=== PATIENT | female | born 1975 | race Caucasian/White ===

== ENCOUNTER 2019-06-03 07:37 | Observation (INO) | payer OTHER ==
[2019-06-02 10:25] LABS: BASOPHILS # (AUTO) 0.1 (0.0-0.1); BASOPHILS % 0.7 % (0.0-1.0); EOSINOPHILS # (AUTO) 0.2 (0.0-0.4); EOSINOPHILS % 3.1 % (0.0-6.0); HEMATOCRIT 40.2 % (34.2-44.1); HEMOGLOBIN 13.8 g/dL (12.0-16.0); LYMPHOCYTES # (AUTO) 2.2 (1.0-3.2); MEAN CORPUSCULAR HEMOGLOBIN 32.6 pg (28-32); MEAN CORPUSCULAR HGB CONC 34.3 g/dL (31-35); MONOCYTES # (AUTO) 0.5 (0.2-0.8); MONOCYTES % 6.3 % (4.4-11.3); NEUTROPHILS # (AUTO) 4.4 (2.1-6.9); NEUTROPHILS % 59.4 % (38.7-80.0); PLATELET COUNT 273 x10e3/uL (140-360); RED BLOOD COUNT 4.23 x10e6/uL (3.6-5.1); RED CELL DISTRIBUTION WIDTH 11.5 % (11.7-14.4)
[2019-06-02 10:36] LABS: INR 0.87; PROTHROMBIN TIME 12.3 seconds (11.9-14.5)
[2019-06-02 10:37] LABS: PARTIAL THROMBOPLASTIN TIME 30.3 seconds (23.8-35.5)
[2019-06-02 10:42] LABS: ANION GAP 9.4 mmol/L (8-16); BLOOD UREA NITROGEN 9 mg/dL (7-26); BUN/CREATININE RATIO 13 (6-25); CALCIUM 9.2 mg/dL (8.4-10.2); CARBON DIOXIDE 27 mmol/L (22-29); CHLORIDE 104 mmol/L (98-107); CREATININE, SERUM 0.71 mg/dL (0.57-1.11); EST GLOMERULAR FILTRATION RATE > 60 ML/MIN (60-); GLUCOSE 86 mg/dL (74-118); POTASSIUM 4.4 mmol/L (3.5-5.1); SODIUM 136 mmol/L (136-145)
--- NOTE | 2019-06-02 10:54 | Diagnostic Imaging Report ---
EXAMINATION: CHEST 2 VIEWS INDICATION: Pre-operative COMPARISON: None FINDINGS: LINES/TUBES:None LUNGS:The lungs are well-inflated. No focal consolidation or pulmonary edema. PLEURA:No pleural effusion or pneumothorax. MEDIASTINUM:The cardiomediastinal silhouette appears normal in size and shape. BONES/SOFT TISSUES:No acute osseous injury. ABDOMEN:No free air under the diaphragm. Status post cholecystectomy. IMPRESSION: No focal pneumonia or pulmonary edema. Signed by: Jose Deng MD on 06/02/2019 10:51 AM
[~2019-06-03] VITALS: Ht 182.9 cm; Wt 89.8 kg
[~2019-06-03 07:37] MED LIST: ACETAMINOPHEN 1000 MG/100 ML 100 ML IV ONE; IBUPROFEN 800MG/ 250ML 250 ML IV ONE; LIDOCAINE HCL (LTA) 4 ML SOLN ONE
--- OUTSIDE RECORDS SUMMARY | 2019-06-03 07:39 | XMS REPORT ---
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 Allergies, Adverse Reactions, Alerts Allergy Name Allergy Type Status Severity Reaction(s) Onset Date Inactive Date Treating Clinician Comments No Known Allergies DA Active U 2019-03-30 00:00:00 Medications This patient has no known medications. Results Test Description Test Time Test Comments Text Results Atomic Results Result Comments CHEST 2 VIEWS 2019-06-02 10:50:00 [place] [address] Patient Name: DAVID MAHER MR #: [id number] : 1975 Age/Sex: 44/F Req #: [id number] Adm Physician: Ordered by: AMANDO GRIDER MD Report #: [id number] Location: OR Room/Bed: Procedure: [id number] DX/CHEST 2 VIEWS Exam Date: 06/02/19 Exam Time: 944 REPORT STATUS: Signed EXAMINATION: CHEST 2 VIEWS INDICATION: Pre-operative COMPARISON: None FINDINGS: LINES/TUBES:None LUNGS:The lungs are well-inflated. No focal consolidation or pulmonary edema. PLEURA:No pleural effusion or pneumothorax. MEDIASTINUM:The cardiomediastinal silhouette appears normal in size and shape. BONES/SOFT TISSUES:No acute osseous injury. ABDOMEN:No free air under the diaphragm. Status post cholecystectomy. IMPRESSION: No focal pneumonia or pulmonary edema. Signed by: Dionicio Deng MD on 06/02/2019 10:51 AM Dictated By: DIONICIO DENG MD 1051 Transcribed By: DAVID on 06/02/19 1051 COPY TO: AMANDO GRIDER MD - CT C-SPINE W/O CONT 2019-03-30 10:58:00 [place]: St: PRE Name: MAHERDAVIDE [facility] : 1975 Age/S: 43/F [address] Unit: [id number] Loc: [place] [address] Phys: Elias Patel Acct: [id number] Dis Date: Status: PRE ER PHONE #: [phone] Exam Date: 03/30/2019 1048 FAX #: [phone] Reason: neck pain with rt arm radiation EXAMS: CPT CODE: [id number] CT C-SPINE W/O CONT 22825 EXAM: CT CERVICAL SPINE WITHOUT CONTRAST LOCATION: C3 HISTORY: neck pain with rt arm radiation TECHNIQUE: Axial tomogram s through the cervical spine were obtained without intravenous contrast. Sagittal and coronal reformatted images are provided. This exam was performed according to our departmental dose-optimization program, which includes automated exposure control, adjustment of the mA and/or kV according to patient size and/or use of iterative reconstruction technique. COMPARISON: None available time of interpretation. FINDINGS: Cervical alignment is maintained. No acute fracture or dislocation. The prevertebral soft tissues are within normal limits. The visualized soft tissues of the neck show no significant abnormalities. IMPRESSION: No acute osseous findings. at 1058 Reported and signed by: Maldonado Spivey MD CC: Technologist: KULWANT BA; STUDENT 2ND YEAR; Tracie Doll Trnscrd Dt/Tm: 03/30/2019 (9854) [email or web address] Orig Print D/T: S: 03/30/2019 (7681 PAGE 1 Signed Report
[2019-06-03] MEDS ORDERED: CEFAZOLIN SOD 1 GM/NS 50ML 50 ML IV ONE (08:29)
[2019-06-03] MEDS ORDERED: BUPIVACAINE 0.5%/EPI 30 ML SDV INJ ONE (09:15)
[2019-06-03] MEDS ORDERED: THROMBIN FOR SOLN 5,000 UNIT VIAL ONE (09:15)
[2019-06-03] MEDS ORDERED: BACITRACIN 50,000 UNIT VIAL ONE (09:15)
[2019-06-03] MEDS ORDERED: CEPACOL SORE THROAT LOZENGES PO PRN (11:15)
[2019-06-03] MEDS ORDERED: HYDROMORPHONE 2MG/ML 2 MG/ML ML IV PRN (11:15)
[2019-06-03] MEDS ORDERED: ZOLPIDEM TARTRATE 5 MG TAB PO PRN (11:15)
[2019-06-03] MEDS ORDERED: MORPHINE SULFATE 5 MG/ML VIAL IM PRN (11:15)
[2019-06-03] MEDS ORDERED: ONDANSETRON HCL INJ 2MG/ML 2ML 2 MG/ML VIAL IV PRN (11:15)
[2019-06-03] MEDS ORDERED: ACETAMINOPHEN 325 MG TAB PO PRN (11:15)
[2019-06-03] MEDS ORDERED: PROMETHAZINE HCL (IM) 25 MG/ML VIAL IM PRN (11:15)
[2019-06-03] MEDS ORDERED: MORPHINE SULFATE INJ 4 MG/ML INJ 1ML IM PRN (11:30)
[2019-06-03 12:00] VITALS: BP 133/95
[2019-06-03] MEDS: LACTATED RINGER'S 1,000 ML IV SCH ×2 (12:00→15:40)
[2019-06-03 12:07] VITALS: BP 133/95
[2019-06-03 12:08] VITALS: BP 133/95
[2019-06-03] MEDS: CARISOPRODOL 350 MG TAB PO PRN ×2 (12:27→19:50)
[2019-06-03] MEDS: OXYCODONE/ACETAMINOPHEN 5-325 1 EACH TABLET PO PRN ×2 (12:27→19:50)
[2019-06-03] MEDS: MAGNESIUM/ALUMINUM/SIMETHICONE 30 ML UDC PO PRN (12:27)
--- NOTE | 2019-06-03 13:06 | Operative Report ---
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 POSTOPERATIVE DIAGNOSIS: C5-C6 disk herniation with radiculopathy, M50.122. PROCEDURES: 1. C5-C6 anterior cervical diskectomy and allograft fusion, 44779. 2. Preparation of MTF corticocancellous allograft, 23613. 3. C5-C6 anterior cervical plating with Synthes ZPN plate, 46463. ANESTHESIA: General. INDICATIONS: The patient is a 44-year-old woman, who presents with C5-C6 disk herniation, refractory to extensive conservative treatment, symptomatic with the right C6 radiculopathy. She was taken to the surgery for anterior cervical decompression and fusion. PROCEDURE IN DETAIL: After induction of general anesthesia, the patient was placed on the operating table in supine position. The right side of neck was prepped and draped in sterile fashion. The fluoroscopic C-arm was positioned in cross-table lateral orientation. A small transverse incision was created on the right side of neck superimposed on the C5-C6 disk space as determined by fluoroscopy. The platysma was divided in line with the incision. A subplatysmal dissection was carried out and avascular plane dissection was developed medial to the sternocleidomastoid muscle and was followed medial to the carotid sheath to the anterior border of the cervical spine. The deep cervical fascia was opened. The esophagus was retracted to the left. The attachments of longus colli muscles to the anterolateral aspects of vertebral bodies of C5 and C6 were divided. The anterior longitudinal ligament was resected. [place] posts were inserted in C5 and C6, and the [place] distractor was used to distract the disk space. The anterior annulus of the disk was incised with a #11 blade and the contents of the C5-C6 disk were thoroughly evacuated with curettes and pituitary rongeurs. The posterior osteophytes were meticulously drilled with a 2 mm cutting bur on a high-speed drill until they were completely removed. The posterior annulus of the disk was resected. A large amount of herniated disk material extending into the right C6 neuroforamen was carefully removed. The posterior longitudinal ligament was completely resected. The medial aspect of the uncinate process was resected on the right side and additional herniated disk was retrieved from the right C6 neural foramina and removed. Excellent decompression was thus achieved. The disk was sized and an 8 mm piece of MTF corticocancellous allograft was selected and prepared in saline, this was then loaded onto a Synthes ZPN plate. A construct was inserted into the C5-C6 disk space under distraction and fluoroscopic guidance. The distraction was released and distraction posts were removed. The plate was then screwed to the endplates of C6 and C7 with two pairs of 14 mm screws. All screws were locked and excellent construct was obtained. The wound was copiously irrigated with bacitracin solution. Meticulous hemostasis was secured. Retractor was removed. The platysma was closed with 3-0 Vicryl sutures. The skin was closed with 4-0 Monocryl sutures in subcuticular fashion. Steri-Strips and dressing were applied. The patient was awakened, extubated, and taken to postanesthesia care unit in stable condition. No intraoperative complications were encountered. Estimated blood loss was 10 mL. Zev Villagomez MD PP/DELIA /[id number]
[2019-06-03] MEDS ORDERED: FENTANYL CITRATE/PF 100MCG/2 ML INJ ONE (14:30)
[2019-06-03] MEDS ORDERED: MIDAZOLAM HCL 2 MG/2 ML VIAL ONE (14:30)
[2019-06-03 16:05] VITALS: BP 131/78
[2019-06-03] MEDS: CEFAZOLIN SOD 1 GM/NS 50ML 50 ML IV SCH (17:26)
[2019-06-03] MEDS ORDERED: LIDOCAINE HCL 2% LOCAL INJ 5 ML SDV VIAL INJ ONE (18:06)
[2019-06-03] MEDS ORDERED: SEVOFLURANE INHAL SOLN 250 ML PEN BTL ONE (18:06)
[2019-06-03] MEDS ORDERED: DEXAMETHASONE SOD PHOS INJ 4 MG/ML VIAL ONE (18:06)
[2019-06-03] MEDS ORDERED: NEOSTIGMINE 5 MG/5ML SYR ONE (18:06)
[2019-06-03] MEDS ORDERED: PROPOFOL IV EMULSION 10 MG/ML 20 ML VIAL ONE (18:06)
[2019-06-03] MEDS ORDERED: ROCURONIUM BROMIDE 10 MG/ML 5ML VIAL ONE (18:06)
[2019-06-03] MEDS ORDERED: ONDANSETRON HCL INJ 2MG/ML 2ML 2 MG/ML VIAL ONE (18:06)
[2019-06-03] MEDS ORDERED: GLYCOPYRROLATE INJ 1MG/ 5 ML SYR ONE (18:06)
--- NOTE | 2019-06-03 19:00 | NUR ---
RECEIVED PATIENT IN BEDSIDE REPORT. PATIENT SITTING UP IN BED AT THIS TIME. REPORTS NECK PAIN 5/10, WILL ADMINISTER PAIN MEDICATIONS. NO S&S OF DISTRESS NOTED. R HAND 20G IV ASYMPTOMATIC, INTACT, AND PATENT. BED LOCKED IN LOWEST POSITION, SIDE RAILS UPX2, CALL LIGHT IN REACH.
[2019-06-03 20:29] VITALS: BP 103/80
[2019-06-03 20:33] VITALS: BP 103/80
[2019-06-04] VITALS: BP 112/67
[2019-06-04] MEDS: CEFAZOLIN SOD 1 GM/NS 50ML 50 ML IV SCH ×2 (01:18→08:56)
[2019-06-04] MEDS: MAGNESIUM/ALUMINUM/SIMETHICONE 30 ML UDC PO PRN (01:22)
[2019-06-04] MEDS: CARISOPRODOL 350 MG TAB PO PRN ×2 (01:22→07:12)
[2019-06-04] MEDS: OXYCODONE/ACETAMINOPHEN 5-325 1 EACH TABLET PO PRN ×2 (01:22→07:11)
[2019-06-04 04:00] VITALS: BP 101/68
--- NOTE | 2019-06-04 07:00 | NUR ---
BEDSIDE ROUNDS COMPLETE NO DISTRESS NOTED, UPDATED ON POC VOICED UNDERSTANDING, CO PAIN MEDICATED WITH PRN MEDS, DSG TO NECK C/D/I R HAND 20G NO SS OF INFILTRATION NOTED, NO OTHER CO VOICED CALL LIGHT IN REACH WILL CONTINUE TO MONITOR
[2019-06-04 08:14] VITALS: BP 128/93
--- NOTE | 2019-06-04 08:53 | Diagnostic Imaging Report ---
EXAMINATION: C-SPINE 2 VIEWS AP LATERAL INDICATION: Postoperative COMPARISON: None FINDINGS: AP and lateral radiographs of the cervical spine demonstrate postoperative findings of anterior cervical discectomy and fusion at C5-6. Alignment is anatomic. No acute fracture or dislocation. Small amount of prevertebral postoperative soft tissue thickening and soft tissue emphysema. IMPRESSION: Anatomic alignment status post anterior cervical discectomy and fusion at C5-6. Signed by: Jose Deng MD on 06/04/2019 8:49 AM
[2019-06-04 08:57] VITALS: BP 128/93
== END 2019-06-04 11:39 | disposition home or self-care (01) ==
LOC: OR 07:37 → PACU V 11:39 → MED/SURG 11:52
PROVIDERS: ADMIT Neurological Surgery; ATTEND Neurological Surgery
DX: M50.122 Cervical disc disorder at C5-C6 level with radiculopathy (principal); F17.210 Nicotine dependence, cigarettes, uncomplicated; Z01.810 Encounter for preprocedural cardiovascular examination; Z01.812 Encounter for preprocedural laboratory examination; Z01.811 Encounter for preprocedural respiratory examination
CPT/HCPCS: 20931; 22551; 22845; 36415; 71046; 72040; 77003; 80048; 81025; 85025; 85610; 85730; 86850; 86900; 88304; 93005; G0378 ×2; J0131; J0690 ×2; J1100; J2001; J2250; J2270; J2405; J2704; J3010; J3490; J7121

== ENCOUNTER → 2019-07-01 | Outpatient (CLI) | payer OTHER ==
--- NOTE | 2019-07-01 11:54 | Diagnostic Imaging Report ---
EXAMINATION: SPINE CERVICAL AP LAT FLEX EXT INDICATION: Postoperative COMPARISON: None FINDINGS: Again seen are postoperative findings of anterior cervical discectomy and fusion at C5-6. Alignment appears anatomic and is unchanged on flexion and extension views. No acute osseous injury. The prevertebral soft tissues are normal in thickness. Minimal multilevel degenerative changes. The minimally visualized lung apices appear clear. IMPRESSION: Anatomic alignment status post anterior cervical discectomy and fusion at C5-6. Signed by: Jose Deng MD on 07/01/2019 11:51 AM
== END ==
LOC: RAD 11:08
PROVIDERS: ATTEND Neurological Surgery
DX: M50.20 Other cervical disc displacement, unspecified cervical region (principal); M43.22 Fusion of spine, cervical region
CPT/HCPCS: 72050